=== PATIENT | male | born 1995 | race Caucasian/White ===

== ENCOUNTER 2017-07-19 17:46 | Emergency (ER) | payer BC ==
[2017-07-19 18:45] VITALS: BP 148/74
--- NOTE | 2017-07-19 19:01 | ED ---
Throat Pain/Nasal Congestion - HPI Summary HPI Summary: 21 yr old male with the complaint of bilateral sinus pressure, post nasal drip and sore throat. Onset of symptoms was two days ago. he state he gets sinus infection every spring and feels like this is one of them. - History of Current Complaint Chief Complaint: UCGeneralIllness Time Seen by Provider: 07/19/17 18:51 - Allergies/Home Medications Allergies/Adverse Reactions: Allergies Allergy/AdvReac Type Severity Reaction Status Date / Time amoxicillin [From Augmentin] Allergy Hives Verified 07/19/17 18:35 clavulanic acid Allergy Hives Verified 07/19/17 18:35 [From Augmentin] Penicillins Allergy Hives Verified 07/19/17 18:35 Home Medications: Home Medications Albuterol HFA INHALER* [Ventolin HFA Inhaler*] 2 puff INH Q4H PRN 07/19/17 [ History Confirmed 07/19/17] Pseudoephedrine TAB* [Sudafed TAB*] 30 mg PO Q6H PRN 07/19/17 [History Confirmed 07/19/17] PMH/Surg Hx/FS Hx/Imm Hx - Surgical History Surgery Procedure, Year, and Place: T&A. B/L EAR TUBES X 2 Infectious Disease History: No Infectious Disease History: Denies: Traveled Outside the [place] in Last 30 Days - Family History Known Family History: Positive: Cardiac Disease, Hypertension, Diabetes - Social History Occupation: Student Lives: Dormitory/Roommates Alcohol Use: Weekly Substance Use Type: Reports: Marijuana Substance Use Comment - Amount & Last Used: weekends Smoking Status (MU): Never Smoked Tobacco Type: Cigars Amount Used/How Often: WEEKENDS Length of Time of Smoking/Using Tobacco: 1 YR Have You Smoked in the Last Year: Yes Review of Systems Constitutional: Negative Positive: Other - sinus pressure, post nasal drip. All Other Systems Reviewed And Are Negative: Yes Physical Exam Triage Information Reviewed: Yes Vital Signs On Initial Exam: Initial Vitals Temp Pulse Resp BP Pulse Ox 98.3 F 80 18 148/74 100 07/19/17 18:37 07/19/17 18:37 07/19/17 18:37 07/19/17 18:37 07/19/17 18:37 Vital Signs Reviewed: Yes Appearance: Positive: Well-Appearing, No Pain Distress Skin: Positive: Warm, Skin Color Reflects Adequate Perfusion Head/Face: Positive: Normal Head/Face Inspection Eyes: Positive: EOMI ENT: Positive: Pharyngeal erythema, Nasal congestion, TMs normal, Sinus tenderness Neck: Positive: Supple, Nontender Respiratory/Lung Sounds: Positive: Clear to Auscultation, Breath Sounds Present Cardiovascular: Positive: RRR. Negative: Murmur Abdomen Description: Positive: Nontender Musculoskeletal: Positive: Strength/ROM Intact Neurological: Positive: Sensory/Motor Intact, Alert, Oriented to Person Place, Time, CN Intact II-III Psychiatric: Positive: Normal - Rashad Coma Scale Best Eye Response: 4 - Spontaneous Best Motor Response: 6 - Obeys Commands Best Verbal Response: 5 - Oriented Coma Scale Total: 15 Diagnostics - Vital Signs Vital Signs Temp Pulse Resp BP Pulse Ox 07/19/17 18:37 98.3 F 80 18 148/74 100 - Laboratory Lab Statement: Any lab studies that have been ordered have been reviewed, and results considered in the medical decision making process. EENT Course/Dx - Course Course Of Treatment: 21 yr old with sinusitis. Rx biaxin, DC home - Diagnoses Provider Diagnoses: Sinusitis, Hypertension Discharge - Sign-Out/Discharge Documenting (check all that apply): Discharge/Admit/Transfer - Discharge Plan Condition: Good Disposition: HOME Prescriptions: Clarithromycin TAB* [Biaxin 500 MG TAB*] 500 mg PO BID #20 tab Patient Education Materials: Sinusitis (ED), Hypertension (ED) Forms: *School Release Referrals: [facility] [Outside] Derik ASCENCIO,Bill Keating [Primary Care Provider] - 2 Days - Billing Disposition and Condition Condition: GOOD Disposition: HOME
== END 2017-07-19 19:02 | disposition home or self-care (01) ==
LOC: UCCORT 17:46
DX: J32.9 Chronic sinusitis, unspecified (principal); I10 Essential (primary) hypertension; Z88.0 Allergy status to penicillin; Z88.8 Allergy status to other drugs, medicaments and biological substances
CPT/HCPCS: 99212; G0463